=== PATIENT | female | born 1955 | race Caucasian/White ===

== ENCOUNTER 2021-04-16 02:19 | Emergency (ER) | payer MEDICAID ==
[~2021-04-16] VITALS: Ht 162.6 cm; Wt 64.0 kg
[2021-04-16] MEDS ORDERED: HYDROCODONE/ACETAMINOPHEN 5/325MG TABLET PO ONE (03:15)
[2021-04-16 03:35] VITALS: BP 141/75
[2021-04-16] MEDS ORDERED: ACET-2708 MT ×2 (05:30)
[2021-04-16] MEDS ORDERED: T3 PO (05:39)
== END 2021-04-16 06:15 | disposition home or self-care (01) ==
LOC: ER 02:19
DX: S22.31XA Fracture of one rib, right side, initial encounter for closed fracture (principal); M25.511 Pain in right shoulder; E11.9 Type 2 diabetes mellitus without complications; W01.0XXA Fall on same level from slipping, tripping and stumbling without subsequent striking against object, initial encounter; Y93.89 Activity, other specified; Y92.012 Bathroom of single-family (private) house as the place of occurrence of the external cause
CPT/HCPCS: 71101; 73030; 99284